=== PATIENT | male | born 1980 | race Two or more races ===

== ENCOUNTER 2023-08-15 22:25 | Emergency (ER) | payer MEDICAID ==
[~2023-08-15] VITALS: Ht 177.8 cm; Wt 83.3 kg
[2023-08-15 22:30] VITALS: BP 140/93; PULSE 89; RESP 16; TEMP 99.3; O2SAT 100
[2023-08-16] MEDS ORDERED: HYDROcodone-ACET 5/325MG TAB PO ONE (00:15)
[2023-08-16] MEDS ORDERED: cefTRIAXone SOD 1,000 MG VL IM ONE (00:15)
[2023-08-16] MEDS ORDERED: BACDST PO (00:16)
[2023-08-16] MEDS ORDERED: CLIN300C70 PO (00:16)
[2023-08-16] MEDS ORDERED: IBU600T PO (00:16)
[2023-08-16] MEDS ORDERED: MUPI2OIN2 EX (00:16)
== END 2023-08-16 00:49 | disposition home or self-care (01) ==
LOC: ER 22:25
DX: S33.5XXA Sprain of ligaments of lumbar spine, initial encounter (principal); L02.416 Cutaneous abscess of left lower limb; L02.415 Cutaneous abscess of right lower limb; Z79.899 Other long term (current) drug therapy; Z79.1 Long term (current) use of non-steroidal anti-inflammatories (NSAID); V09.9XXA Pedestrian injured in unspecified transport accident, initial encounter; Y93.89 Activity, other specified; Y92.89 Other specified places as the place of occurrence of the external cause; Y99.8 Other external cause status
CPT/HCPCS: 87077; 87186; 87205; 96372; 99283; J0696